=== PATIENT | female | born 1930 | race Caucasian/White ===

== ENCOUNTER 2017-03-07 13:57 | Inpatient (IN) | payer OTHER ==
[2017-03-07] MEDS ORDERED: METOCLOPRAMIDE HCL INJECTION 10 MG/2 ML VIAL IVPUSH ONE (14:49)
[2017-03-07] MEDS ORDERED: FAMOTIDINE IV 20 MG/12 ML VIAL IVPUSH ONE (14:49)
[2017-03-07] MEDS ORDERED: SODIUM CHLORIDE 1,000 ML IV SCH (15:00)
--- NOTE | 2017-03-07 15:22 | PDOC ---
History of Present Illness - History of Present Illness Initial Comments: 03/07/17 15:49 The patient is a 86 year old female with a significant PMH of hypertension and dementia who presents to the emergency department after a fall on the ground today. The patient reports she was trying to get out of bed when she fell and hit her head. The patient notes she has experienced nausea and multiple episodes of diarrhea. History is limited secondary to dementia. The patient denies LOC, chest pain, shortness of breath, headache and dizziness. Denies fever, chills, nausea, vomit, diarrhea and constipation. Denies dysuria, frequency, urgency and hematuria. Allergies: NKA Past surgical history: None reported Social history: Lives at home. No reported alcohol, cigarette or drug use. PCP: Dr. Nadeen Colunga <Haley Bloom - Last Filed: 03/07/17 15:52> - General History Source: Patient, Family <Andrew Farnsworth - Last Filed: 03/07/17 19:27> - General Chief Complaint: Injury Stated Complaint: FALL Time Seen by Provider: 03/07/17 14:48 Past History <Haley Bloom - Last Filed: 03/07/17 15:52> - Past Medical History CVA: No COPD: No HTN: Yes Hypercholesterolemia: Yes Psychiatric Problems: Yes (bipolar, schizophrenia,) Other medical history: cataracts, glaucoma. - Suicide/Smoking/Psychosocial Hx Smoking History: Never smoked Have you smoked in the past 12 months: No Information on smoking cessation initiated: No Hx Alcohol Use: No Drug/Substance Use Hx: No Substance Use Type: None <Andrew Farnsworth - Last Filed: 03/07/17 19:27> - Past Medical History Allergies/Adverse Reactions: Allergies Allergy/AdvReac Type Severity Reaction Status Date / Time No Known Allergies Allergy Verified 03/07/17 14:22 Home Medications: Ambulatory Orders Aripiprazole 10 mg PO DAILY 03/07/17 Divalproex [Depakote -] 250 mg PO BID 03/07/17 Hydrocortisone 0.5% Cream [Hytone 0.5% Cream -] 1 applic TP BID 03/07/17 Latanoprost 0.005% Eye Drops [Xalatan 0.005% Eye Drops -] 1 drop HS 03/07/17 Lisinopril [Prinivil -] 40 mg PO DAILY 03/07/17 Sertraline HCl 50 mg PO DAILY 03/07/17 Review of Systems - Review of Systems Able to Perform ROS?: Yes Comments:: 03/07/17 15:51 GENERAL/CONSTITUTIONAL: No fever or chills. No weakness. HEAD, EYES, EARS, NOSE AND THROAT: No change in vision. No ear pain or discharge. No sore throat. CARDIOVASCULAR: No chest pain or shortness of breath. RESPIRATORY: No cough, wheezing, or hemoptysis. GASTROINTESTINAL: (+) Nausea. (+) Diarrhea. No vomiting or constipation. GENITOURINARY: No dysuria, frequency, or change in urination. MUSCULOSKELETAL: No joint or muscle swelling or pain. No neck or back pain. SKIN: No rash NEUROLOGIC: No headache, vertigo, loss of consciousness, or change in strength/ sensation. ENDOCRINE: No increased thirst. No abnormal weight change. HEMATOLOGIC/LYMPHATIC: No anemia, easy bleeding, or history of blood clots. ALLERGIC/IMMUNOLOGIC: No hives or skin allergy. <Haley Bloom - Last Filed: 03/07/17 15:52> *Physical Exam - Vital Signs Last Vital Signs Temp Pulse Resp BP Pulse Ox 99.4 F 104 H 18 167/87 100 03/07/17 14:17 03/07/17 14:17 03/07/17 14:17 03/07/17 14:17 03/07/17 14:17 - Physical Exam Comments: 03/07/17 15:51 GENERAL: (+) Weak-appearing. Awake, alert, and oriented x1. In no acute distress. HEAD: No signs of trauma EYES: PERRLA, EOMI, sclera anicteric, conjunctiva clear ENT: (+) Dry mucous membranes. Auricles normal inspection, hearing grossly normal, nares patent, oropharynx clear without exudates. NECK: (+) No C-spine tenderness. Normal ROM, supple, JVD, or masses LUNGS: Breath sounds equal, clear to auscultation bilaterally. No wheezes, and no crackles HEART: Regular rate and rhythm, normal S1 and S2, no murmurs, rubs or gallops ABDOMEN: Soft, nontender, normoactive bowel sounds. No guarding, no rebound. No masses PELVIS: Full range of motion. Stable, non-tender. EXTREMITIES: Normal range of motion, no edema. No clubbing or cyanosis. No cords, erythema, or tenderness NEUROLOGICAL: Cranial nerves II through XII grossly intact. Normal speech. SKIN: Warm, Dry, normal turgor, no rashes or lesions noted. <Haley Bloom - Last Filed: 03/07/17 15:52> - Vital Signs Last Vital Signs Temp Pulse Resp BP Pulse Ox 99.4 F 104 H 18 167/87 100 03/07/17 14:17 03/07/17 14:17 03/07/17 14:17 03/07/17 14:17 03/07/17 14:17 <Andrew Farnsworth - Last Filed: 03/07/17 19:27> ED Treatment Course - LABORATORY CBC & Chemistry Diagram: 03/07/17 14:52 03/07/17 17:35 - RADIOLOGY Radiology Studies Ordered: Category Date Time Status HEAD CT WITHOUT CONTRAST [CT] Stat CT Scan 03/07/17 15:02 Ordered CHEST X-RAY PORTABLE* [RAD] Stat Radiology 03/07/17 14:49 Ordered <Andrew Farnsworth - Last Filed: 03/07/17 19:27> Medical Decision Making - Medical Decision Making 03/07/17 15:18 A portion of this note was documented by scribe services under my direction. I have reviewed the details of the note, within reason, and agree with the documentation with the following case summary and management plan written by me. Patient treated in the ED. Nursing notes are reviewed and incorporated into the medical decision-making. Vital signs reviewed. Peripheral IV access obtained by the nurse, laboratory studies are drawn and sent, reviewed and interpreted by myself. Vital Signs Temp Pulse Resp BP Pulse Ox 99.4 F 104 H 18 167/87 100 03/07/17 14:17 03/07/17 14:17 03/07/17 14:17 03/07/17 14:17 03/07/17 14:17 85-year-old female patient with history of hypertension and dementia presents to the emergency department for fall on ground. The patient reports that she lives at home and was attempting to get out of bed when she fell and hit her head. Denies loss of consciousness. Patient reports that today she's been feeling generally unwell. Has been feeling some nausea and multiple episodes of diarrhea. Denies fevers or chills or chest pain or shortness of breath. Denies dysuria. Patient is AAO 1 and with dementia. We'll need to touch base with the patient' s power of tax attorney regarding further medical problems and circumstance. Patient appears have dry mucous membranes and likely with some for GI illness. However, patient has no abdominal tenderness at this time. We'll obtain labs, head CT, EKG. Reassess. 03/07/17 16:10 We had contacted Denisse Olivia Power of Operations Trainer who is aware patient is here. According to [facility], it is an independent living center (not [facility]). Pt has bipolar disorder, HLD, schizophrenia, HTN, glaucoma 03/07/17 19:21 CBC, BMP 03/07/17 14:52 03/07/17 17:35 CMP Sodium 140 mmol/L (136-145) 03/07/17 17:35 Potassium 3.8 mmol/L (3.5-5.1) 03/07/17 17:35 Chloride 103 mmol/L (98-107) 03/07/17 17:35 Carbon Dioxide 27 mmol/L (21-32) 03/07/17 17:35 Anion Gap 10 (8-16) 03/07/17 17:35 BUN 15 mg/dL (7-18) 03/07/17 17:35 Creatinine 0.9 mg/dL (0.55-1.02) 03/07/17 17:35 Creat Clearance w eGFR 59.51 (>60) 03/07/17 17:35 Random Glucose 110 mg/dL (74-106) H 03/07/17 17:35 Lactic Acid 1.3 mmol/L (0.0-2.0) 03/07/17 17:25 Calcium 8.3 mg/dL (8.5-10.1) L 03/07/17 17:35 Phosphorus 3.2 mg/dL (2.5-4.9) 03/07/17 17:35 Magnesium 1.7 mg/dL (1.8-2.4) L 03/07/17 17:35 Total Bilirubin 0.8 mg/dL (0.2-1.0) 03/07/17 17:35 AST 32 U/L (15-37) 03/07/17 17:35 ALT 21 U/L (12-78) 03/07/17 17:35 Alkaline Phosphatase 88 U/L (45-117) 03/07/17 17:35 Creatine Kinase 532 IU/L (26-192) H 03/07/17 17:35 Creatine Kinase Index 0.4 % (0.0-5.0) 03/07/17 17:35 CK-MB (CK-2) 2.598 ng/mL (0.5-3.6) 03/07/17 17:35 Troponin I 0.02 ng/ml (0.00-0.05) 03/07/17 17:35 Total Protein 7.4 g/dl (6.4-8.2) 03/07/17 17:35 Albumin 3.2 g/dl (3.4-5.0) L 03/07/17 17:35 Lipase 57 U/L (73-393) L 03/07/17 17:35 Urine Test Results Urine Color Yellow 03/07/17 18:06 Urine Appearance Clear 03/07/17 18:06 Urine pH 6.0 (5.0-8.0) 03/07/17 18:06 Ur Specific [place] 1.019 (1.001-1.035) 03/07/17 18:06 Urine Protein 2+ (NEGATIVE) H 03/07/17 18:06 Urine Glucose (UA) Negative (NEGATIVE) 03/07/17 18:06 Urine Ketones 1+ (NEGATIVE) H 03/07/17 18:06 Urine Blood 1+ (NEGATIVE) H 03/07/17 18:06 Urine Nitrite Negative (NEGATIVE) 03/07/17 18:06 Urine Bilirubin Negative (NEGATIVE) 03/07/17 18:06 Ur Leukocyte Esterase Negative (NEGATIVE) 03/07/17 18:06 Patient noted with a fever. Case discussed with the patient's sister Maegan Ramirez [phone], , who is aware. The patient is too weak to get up and walk and likely dehydrated with GI symptoms, gastroenteritis. 03/07/17 19:[address] Galeas who accepts the patient to med/surg observation Case discussed in detail with admitting physician including history, physical exam and ancillary studies. Admitting physician has assumed care for the patient, will follow all pending diagnostics and will complete the evaluation and treatment. <Andrew Farnsworth - Last Filed: 03/07/17 19:27> *DC/Admit/Observation/Transfer - Attestations Scribe Attestion: 03/07/17 15:51 Documentation prepared by Haley Bloom, acting as medical housekeeper for Andrew Farnsworth MD. <Haley Bloom - Last Filed: 03/07/17 15:52> - Discharge Dispostion Admit: Yes <Andrew Farnsworth - Last Filed: 03/07/17 19:27> Diagnosis at time of Disposition: Dehydration Fever Qualifiers: Fever type: unspecified Qualified Code(s): R50.9 - Fever, unspecified - Discharge Dispostion Condition at time of disposition: Stable - Referrals Referrals: Nadeen Colunga MD [Primary Care Provider] - - Patient Instructions - Post Discharge Activity
[2017-03-07] MEDS ORDERED: ONDANSETRON 4 MG/2 ML VIAL ONE (17:13)
[2017-03-07] MEDS ORDERED: METOCLOPRAMIDE HCL INJECTION 10 MG/2 ML VIAL ONE (17:13)
[2017-03-07] MEDS ORDERED: FAMOTIDINE 20 MG/50 ML IVPB 20 MG/50 ML MG IVPB ONE (17:14)
[2017-03-07 18:11] LABS: INR 1.09 (0.82-1.09); PROTHROMBIN TIME (PATIENT) 12.3 SEC (9.98-11.88)
[2017-03-07] MEDS ORDERED: ACETAMINOPHEN INJECTION 100 ML IVPB ONE (18:11)
[2017-03-07 18:14] LABS: ACTIVATED PTT 28.4 SECONDS (26.9-34.4)
[2017-03-07 18:36] LABS: ALBUMIN 3.2 g/dl (3.4-5.0); ANION GAP 10 (8-16); BLOOD UREA NITROGEN 15 mg/dL (7-18); CALCIUM 8.3 mg/dL (8.5-10.1); CHLORIDE 103 mmol/L (98-107); CO2 27 mmol/L (21-32); CREATININE 0.9 mg/dL (0.55-1.02); GLUCOSE,RANDOM 110 mg/dL (74-106); LIPASE 57 U/L (73-393); MAGNESIUM 1.7 mg/dL (1.8-2.4); PHOSPHOROUS 3.2 mg/dL (2.5-4.9); POTASSIUM 3.8 mmol/L (3.5-5.1); SGOT/AST 32 U/L (15-37); SGPT/ALT 21 U/L (12-78); SODIUM 140 mmol/L (136-145)
[2017-03-07 18:36] LABS: URINE APPEARANCE CLEAR; URINE BILIRUBIN NEGATIVE (NEGATIVE); URINE BLOOD 1+ (NEGATIVE); URINE COLOR YELLOW; URINE GLUCOSE (UA) NEGATIVE (NEGATIVE); URINE KETONE 1+ (NEGATIVE); URINE LEUK ESTERASE NEGATIVE (NEGATIVE); URINE NITRITE NEGATIVE (NEGATIVE); URINE UROBILINOGEN 4.0 E.U/dl mg/dL (0.2-1.0)
[2017-03-07 18:37] LABS: ALK PHOS 88 U/L (45-117); BILIRUBIN,TOTAL 0.8 mg/dL (0.2-1.0); TOT PROT 7.4 g/dl (6.4-8.2)
[2017-03-07 18:42] LABS: BASO % 0.4 % (0-2.0); HEMATOCRIT 40.8 % (32.4-45.2); HEMOGLOBIN 13.5 GM/dL (10.7-15.3); LYMPH % 26.3 % (8-40); MCH 27.6 pg (25.7-33.7); MEAN CELL VOLUME 83.6 fl (80-96); MEAN PLT VOLUME 8.7 fl (7.5-11.1); NEUT % 63.3 % (42.8-82.8); PLATELET COUNT 217 K/MM3 (134-434); RBC 4.88 M/mm3 (3.60-5.2); RDW 16.6 % (11.6-15.6); WHITE BLOOD COUNT 11.2 K/mm3 (4.0-10.0)
[2017-03-07 18:43] LABS: URINE PROTEIN 2+ (NEGATIVE)
[2017-03-07] MEDS ORDERED: ACETAMINOPHEN 1000 MG/100 ML VIAL (NON FORMULARY) IVPB ONE (18:47)
[2017-03-07 19:43] LABS: URINE MUCUS RARE
[2017-03-07] MEDS ORDERED: ONDANSETRON 4 MG/2 ML VIAL IVPUSH PRN (20:55)
[2017-03-07] MEDS: SODIUM CHLORIDE 1,000 ML IV SCH (21:03)
[2017-03-07] MEDS ORDERED: MAGNESIUM SULF 50% (8.12 MEQ/2 ML-1 GM VIAL) ONE (21:04)
[2017-03-07] MEDS ORDERED: MAGNESIUM 1GM/D5W - 1 GM/100 ML IVPB IVPB ONE (21:25)
[2017-03-07] MEDS: HEPARIN NA (PORCINE) 5,000 UNITS/ML 1ML VIAL SQ SCH (22:07)
--- NOTE | 2017-03-07 22:17 | HP ---
CHIEF COMPLAINT: s/p fall PCP: HISTORY OF PRESENT ILLNESS: 86 y/o F with PMH HTN, baseline dementia, who presents to the ED s/p fall this morning. As per patient, she was lying down in her bed this AM and had difficulty rising. However, once she got up, she immediately fell. Pt is unable to describe which side she fell on, however states that she felt dizzy and lightheaded a few minutes prior to the episode. She endorses palpitations, but denies head trauma, LOC, or any resulting injuries. Fall was unwitnessed. Pt also endorses nausea without emesis, and many loose BM's. Pt is unable to quantify as she uses a diaper. Otherwise denies GAN, fever, chills, abdominal pain, or changes in urinary function. Patient lives in a co-op on her own. At baseline, she ambulates with a walker. ER course was notable for: (1) acetaminophen 1000mg IVPB x1 (2) reglan 10mg IVP (3) zofran 4mg x 1 (4) Head CT: (-) hemorrhage (5) Mini mental score: 4/30 Recent Travel: none PAST MEDICAL HISTORY: HTN, baseline dementia PAST SURGICAL HISTORY: tonsillectomy (during childhood) Social History: Smoking: denies Alcohol: denies Drugs: denies Family History: denies Allergies No Known Allergies Allergy (Verified 03/07/17 14:22) HOME MEDICATIONS: Home Medications Medication Instructions Recorded Aripiprazole 10 mg PO DAILY 03/07/17 Divalproex [Depakote -] 250 mg PO BID 03/07/17 Hydrocortisone 0.5% Cream [Hytone 1 applic TP BID 03/07/17 0.5% Cream -] Latanoprost 0.005% Eye Drops 1 drop HS 03/07/17 [Xalatan 0.005% Eye Drops -] Lisinopril [Prinivil -] 40 mg PO DAILY 03/07/17 Sertraline HCl 50 mg PO DAILY 03/07/17 REVIEW OF SYSTEMS CONSTITUTIONAL: Absent: fever, chills, diaphoresis, generalized weakness, malaise, loss of appetite, weight change HEENT: Absent: rhinorrhea, nasal congestion, throat pain, throat swelling, difficulty swallowing, mouth swelling, ear pain, eye pain, visual changes CARDIOVASCULAR: +palpitations Absent: chest pain, syncope, palpitations, irregular heart rate, lightheadedness , peripheral edema RESPIRATORY: Absent: cough, shortness of breath, dyspnea with exertion, orthopnea, wheezing, stridor, hemoptysis GASTROINTESTINAL: +nausea, diarrhea Absent: abdominal pain, abdominal distension, nausea, vomiting, diarrhea, constipation, melena, hematochezia GENITOURINARY: Absent: dysuria, frequency, urgency, hesitancy, hematuria, flank pain, genital pain MUSCULOSKELETAL: Absent: myalgia, arthralgia, joint swelling, back pain, neck pain SKIN: Absent: rash, itching, pallor HEMATOLOGIC/IMMUNOLOGIC: Absent: easy bleeding, easy bruising, lymphadenopathy, frequent infections ENDOCRINE: Absent: unexplained weight gain, unexplained weight loss, heat intolerance, cold intolerance NEUROLOGIC: Absent: headache, focal weakness or paresthesias, dizziness, unsteady gait, seizure, mental status changes, bladder or bowel incontinence PSYCHIATRIC: Absent: anxiety, depression, suicidal or homicidal ideation, hallucinations. PHYSICAL EXAMINATION Vital Signs - 24 hr 03/07/17 03/07/17 14:17 16:25 Temperature 99.4 F 101.6 F H Pulse Rate 104 H Pulse Rate [ Left Apical] Respiratory 18 Rate Blood Pressure 167/87 Blood Pressure [Left Arm] O2 Sat by Pulse 100 Oximetry (%) GENERAL: Lethargic, AAOx 1 (to self only), lying in bed. In no acute distress HEAD: Normal with no signs of trauma. EYES: Pupils equal, round and reactive to light, extraocular movements intact, sclera anicteric, conjunctiva clear. EARS, NOSE, THROAT: Ears normal, nares patent, oropharynx clear without exudates. Dry mucous membranes NECK: Normal range of motion, supple without lymphadenopathy LUNGS: Breath sounds equal, clear to auscultation bilaterally. No wheezes, and no crackles. No accessory muscle use. Poor inspiratory effort HEART: Regular rate and rhythm, normal S1 and S2 without murmur, rub or gallop. ABDOMEN: Soft, nontender, not distended, normoactive bowel sounds, no guarding LOWER EXTREMITIES: 2+ posterior tibial pulses, warm, well-perfused. No calf tenderness. No peripheral edema. NEUROLOGICAL: Cranial nerves II-XII appear to be grossly intact, however pt with severe dementia unable to respond to some commands. MMSE 06/10 Laboratory Results 01/03/07/17 03/07/17 14:52 17:25 17:35 WBC 11.2 H Hgb 13.5 Hct 40.8 Plt Count 217 Sodium 140 Potassium 3.8 Chloride 103 Carbon Dioxide 27 BUN 15 Creatinine 0.9 Random Glucose 110 H Lactic Acid 1.3 Calcium 8.3 L Phosphorus 3.2 Magnesium 1.7 L Creatine Kinase 532 H Troponin I 0.02 Lipase 57 L Urine WBC (Auto) 03/07/17 03/07/17 18:06 21:00 Creatine Kinase TSH 3.17 Urine Color Yellow Urine Appearance Clear Urine pH 6.0 Urine Protein 2+ H Urine Ketones 1+ H Urine Blood 1+ H Urine Nitrite Negative Urine Bilirubin Negative Urine Urobilinogen 4.0 e.u/dl H Urine WBC (Auto) 1 Microbiology -Blood cx: sent, pending -Urine cx: sent, pending Radio -CXR: minimal L basilar interstitial thickening, chronic. Small to mod L retrocardiac hernia -Head CT: no evidence hemorrhage, or mass effects. moderate microvascular ischemic changes ASSESSMENT/PLAN: 86 y/o F with PMH HTN, baseline dementia, who presents to the ED s/p fall this morning. As per patient, she was lying down in her bed this AM and had difficulty rising. However, once she got up, she immediately fell. Pt being admitted to med-surg for sepsis 2/2 possible acute gastroenteritis. #Sepsis 2/2 possible acute gastroenteritis -on arrival, pt febrile 101.6F, with leukocytosis 11.2, borderline tachycardic 98HR, GI c/o diarrhea, nausea -may have caused dehydration, leading to fall -supportive care for gastroenteritis -continue IVF -replace electrolytes; Mg 1g IVPB to replete if needed -F/u AM CBC -F/u blood cx, urine cx #HTN- currently uncontrolled -JNC8 goal <150/90 in those 80+ -may be 2/2 discomfort and pain s/p fall -continue home med lisinopril 40mg qd -continue to monitor #PPX DVT: Hep 5000 SQ BID #F/E/N IV NS 75 cc/hr Monitor electrolytes sodium controlled diet #Dispo med-surg Visit type - Emergency Visit Emergency Visit: Yes ED Registration Date: 03/07/17 Care time: The patient presented to the Emergency Department on the above date and was hospitalized for further evaluation of their emergent condition. - New Patient This patient is new to me today: Yes Date on this admission: 03/08/17 - Critical Care Critical Care patient: No
[2017-03-07] MEDS ORDERED: HEPARIN NA (PORCINE) 5,000 UNITS/ML 1ML VIAL ONE (22:20)
[2017-03-08 04:27] LABS: HEMATOCRIT 37.1 % (32.4-45.2); HEMOGLOBIN 12.2 GM/dL (10.7-15.3); MCH 27.5 pg (25.7-33.7); MCHC 32.8 g/dl (32.0-36.0); MEAN PLT VOLUME 8.5 fl (7.5-11.1); PLATELET COUNT 192 K/MM3 (134-434); RBC 4.41 M/mm3 (3.60-5.2); RDW 16.6 % (11.6-15.6); WHITE BLOOD COUNT 8.9 K/mm3 (4.0-10.0)
[2017-03-08 05:38] LABS: ALBUMIN 2.7 g/dl (3.4-5.0); ALK PHOS 75 U/L (45-117); ANION GAP 7 (8-16); BILIRUBIN,TOTAL 0.5 mg/dL (0.2-1.0); BLOOD UREA NITROGEN 19 mg/dL (7-18); CALCIUM 7.5 mg/dL (8.5-10.1); CHLORIDE 107 mmol/L (98-107); CO2 26 mmol/L (21-32); CREATININE 0.9 mg/dL (0.55-1.02); GLUCOSE,RANDOM 111 mg/dL (74-106); SGPT/ALT 22 U/L (12-78); SODIUM 140 mmol/L (136-145); TOT PROT 6.3 g/dl (6.4-8.2)
[2017-03-08 05:48] LABS: MAGNESIUM 1.7 mg/dL (1.8-2.4); POTASSIUM 3.8 mmol/L (3.5-5.1); SGOT/AST 33 U/L (15-37)
--- NOTE | 2017-03-08 07:30 | PN ---
Teaching Attending Note Name of Resident: Sandhya Ni ATTENDING PHYSICIAN STATEMENT I saw and evaluated the patient. I reviewed the resident's note and discussed the case with the resident. I agree with the resident's findings and plan as documented. SUBJECTIVE: 86 y/o F s/p Fall and recurrent fall in the ED , patient is a poor historian secondary to dementia. PMH HTN. OBJECTIVE: Patient A&Ox1, in NAD HEENT: PERRLA, EOMI, MMM CVS: RRR LUNGS: CTA Abd: soft, NT, BS+ Ext: limited ROM secondary to pain , no edema. CBC, BMP 03/08/17 04:16 03/08/17 04:16 ASSESSMENT AND PLAN: Sepsis criteria met possibly- d/t acute gastroenteritis- supportive care hypomagnesemia supplement 1G IVPB HTN continue home medication See H&P Problem List - Problems (1) Sepsis Code(s): A41.9 - SEPSIS, UNSPECIFIED ORGANISM (2) Acute gastroenteritis Code(s): K52.9 - NONINFECTIVE GASTROENTERITIS AND COLITIS, UNSPECIFIED (3) Hypomagnesemia Code(s): E83.42 - HYPOMAGNESEMIA
[2017-03-08] MEDS ORDERED: MAGNESIUM SULF 50% (8.12 MEQ/2 ML-1 GM VIAL) IVPB ONE (07:41)
[2017-03-08] MEDS ORDERED: ACETAMINOPHEN 500 MG TABLET (FP) PO ONE (08:39)
[2017-03-08] MEDS ORDERED: ACETAMINOPHEN 325 MG TABLET (FP) PO PRN (08:41)
[2017-03-08] MEDS ORDERED: ACETAMINOPHEN 500 MG TABLET (FP) ONE (08:49)
[2017-03-08] MEDS ORDERED: MAGNESIUM 1GM/D5W - 1 GM/100 ML IVPB IVPB ONE (09:30)
[2017-03-08] MEDS: HEPARIN NA (PORCINE) 5,000 UNITS/ML 1ML VIAL SQ SCH ×2 (10:17→22:42)
[2017-03-08] MEDS: DIVALPROEX SODIUM 250 MG TABLET E.C. (FP) PO SCH ×2 (10:17→22:42)
[2017-03-08] MEDS: SERTRALINE HCL 50 MG TABLET (FP) PO SCH (10:17)
[2017-03-08] MEDS: ARIPiprazole 10 MG TABLET PO SCH (10:18)
[2017-03-08] MEDS: LISINOPRIL 20 MG TABLET (FP) PO SCH (10:18)
[2017-03-08] MEDS: HYDROCORTISONE 0.5% TOPICAL CREAM 30 GM TUBE TP SCH ×2 (10:18→22:43)
[2017-03-08 17:19] VITALS: BMI 25.4
--- NOTE | 2017-03-08 18:30 | PN ---
Teaching Attending Note Name of Resident: Braxton Burgos ATTENDING PHYSICIAN STATEMENT I saw and evaluated the patient. I reviewed the resident's note and discussed the case with the resident. I agree with the resident's findings and plan as documented. SUBJECTIVE: No fever or chills, no abd pain , NO CP or SOB. reports feeling dizzy before she syncope . diarrhea recently OBJECTIVE: NAD , dry MM , no axillary sweating Cv : RRR Lungs: CTAB Ext: no edema Abd: soft, NT, ND, nl BS ASSESSMENT AND PLAN: 86 y/o lady withh/o HTn and dementia who presented with a fall /syncope 1-Syncope: could be due to orthostatic hypotension in setting of volume depletion. arrhythmias in DDx . - PT - Echo , no significant valvular abn - carotid doppler with no high grade stenosis - check ortho VS - IVF - tele 2-Sepsis : possible viral GE . no diarrhea currently. no evidence of UTI or PNA . monitor off ABx follow blood cx rapid flu Neg, check RVP. 3- volume depetion : IVF 4-hypomagnesemia : replete dispo : Monitor on tele
--- NOTE | 2017-03-08 18:32 | PN ---
Physical Exam: SUBJECTIVE: Patient seen and examined at bedside. denies any fever, chills , N/V /C, denies any abdmoinal pain, denies any headache, light headedness, or dizziness. reports lightheadedness before she fell. OBJECTIVE: Vital Signs Period Temp Pulse Resp BP Sys/[place] Pulse Ox Last 24 Hr 97.2 F-99.9 F 76-98 16-20 137-175/59-86 95-97 GENERAL: Lethargic, AAOx 1 (to self only), lying in bed. In no acute distress HEAD: Normal with no signs of trauma. EYES: Pupils equal, round and reactive to light, extraocular movements intact, sclera anicteric, conjunctiva clear. EARS, NOSE, THROAT: Ears normal, nares patent, oropharynx clear without exudates. Dry mucous membranes NECK: Normal range of motion, supple without lymphadenopathy LUNGS: Breath sounds equal, clear to auscultation bilaterally. No wheezes, and no crackles. No accessory muscle use. Poor inspiratory effort HEART: Regular rate and rhythm, normal S1 and S2 without murmur, rub or gallop. ABDOMEN: Soft, nontender, not distended, normoactive bowel sounds, no guarding LOWER EXTREMITIES: 2+ posterior tibial pulses, warm, well-perfused. No calf tenderness. No peripheral edema. NEUROLOGICAL: Cranial nerves II-XII appear to be grossly intact, however pt with severe dementia unable to respond to some commands. MMSE 06/10 Laboratory Results - last 24 hr 03/07/17 03/07/17 03/07/17 14:52 17:25 17:35 WBC 11.2 H RBC 4.88 Hgb 13.5 Hct 40.8 MCV 83.6 MCH 27.6 MCHC 33.0 RDW 16.6 H Plt Count 217 MPV 8.7 Neutrophils % 63.3 Lymphocytes % 26.3 Monocytes % 10.0 Eosinophils % 0.0 Basophils % 0.4 PT with INR 12.30 H INR 1.09 PTT (Actin FS) 28.4 Sodium Potassium Chloride Carbon Dioxide Anion Gap BUN Creatinine Creat Clearance w eGFR Random Glucose Lactic Acid 1.3 Calcium Phosphorus Magnesium Total Bilirubin AST ALT Alkaline Phosphatase Creatine Kinase Creatine Kinase Index CK-MB (CK-2) Troponin I Total Protein Albumin Lipase TSH Urine Color Urine Appearance Urine pH Ur Specific [place] Urine Protein Urine Glucose (UA) Urine Ketones Urine Blood Urine Nitrite Urine Bilirubin Urine Urobilinogen Ur Leukocyte Esterase Urine WBC (Auto) Urine RBC (Auto) Urine Mucus 03/07/17 03/07/17 03/07/17 17:35 18:06 21:00 WBC RBC Hgb Hct MCV MCH MCHC RDW Plt Count MPV Neutrophils % Lymphocytes % Monocytes % Eosinophils % Basophils % PT with INR INR PTT (Actin FS) Sodium 140 Potassium 3.8 Chloride 103 Carbon Dioxide 27 Anion Gap 10 BUN 15 Creatinine 0.9 Creat Clearance w eGFR 59.51 Random Glucose 110 H Lactic Acid Calcium 8.3 L Phosphorus 3.2 Magnesium 1.7 L Total Bilirubin 0.8 AST 32 ALT 21 Alkaline Phosphatase 88 Creatine Kinase 532 H Creatine Kinase Index 0.4 CK-MB (CK-2) 2.598 Troponin I 0.02 Total Protein 7.4 Albumin 3.2 L Lipase 57 L TSH 3.17 Urine Color Yellow Urine Appearance Clear Urine pH 6.0 Ur Specific [place] 1.019 Urine Protein 2+ H Urine Glucose (UA) Negative Urine Ketones 1+ H Urine Blood 1+ H Urine Nitrite Negative Urine Bilirubin Negative Urine Urobilinogen 4.0 e.u/dl H Ur Leukocyte Esterase Negative Urine WBC (Auto) 1 Urine RBC (Auto) 2 Urine Mucus Rare 03/08/17 03/08/17 03/08/17 04:16 04:16 04:16 WBC 8.9 RBC 4.41 Hgb 12.2 Hct 37.1 MCV 84.0 MCH 27.5 MCHC 32.8 RDW 16.6 H Plt Count 192 MPV 8.5 Neutrophils % Lymphocytes % Monocytes % Eosinophils % Basophils % PT with INR INR PTT (Actin FS) Sodium 140 Potassium 3.8 Chloride 107 Carbon Dioxide 26 Anion Gap 7 L BUN 19 H Creatinine 0.9 Creat Clearance w eGFR 59.51 Random Glucose 111 H Lactic Acid 0.8 Calcium 7.5 L Phosphorus Magnesium 1.7 L Total Bilirubin 0.5 D AST 33 ALT 22 Alkaline Phosphatase 75 Creatine Kinase Creatine Kinase Index CK-MB (CK-2) Troponin I Total Protein 6.3 L Albumin 2.7 L Lipase TSH Urine Color Urine Appearance Urine pH Ur Specific [place] Urine Protein Urine Glucose (UA) Urine Ketones Urine Blood Urine Nitrite Urine Bilirubin Urine Urobilinogen Ur Leukocyte Esterase Urine WBC (Auto) Urine RBC (Auto) Urine Mucus Active Medications Generic Name Dose Route Start Last Admin Trade Name Freq PRN Reason Stop Dose Admin Acetaminophen 650 mg 03/08/17 08:41 Tylenol - PO Q6H PRN PAIN Aripiprazole 10 mg 03/08/17 10:00 03/08/17 10:18 Abilify PO 10 mg DAILY LINO Administration Divalproex Sodium 250 mg 03/08/17 10:00 03/08/17 10:17 Depakote - PO 250 mg BID LINO Administration Heparin Sodium (Porcine) 5,000 unit 03/07/17 22:00 03/08/17 10:17 Heparin - SQ 5,000 unit BID LINO Administration Hydrocortisone 1 applic 03/08/17 10:00 03/08/17 10:18 Hytone 0.5% Cream - TP 1 applic BID LINO Administration Sodium Chloride 1,000 mls @ 83 mls/hr 03/07/17 21:00 03/07/17 21:03 Normal Saline - IV 83 mls/hr ASDIR LINO Administration Latanoprost 1 drop 03/08/17 22:00 Xalatan 0.005% Eye Drops - OD HS LINO Lisinopril 20 mg 03/08/17 10:00 03/08/17 10:18 Prinivil PO 20 mg DAILY LINO Administration Ondansetron HCl 4 mg 03/07/17 20:55 Zofran Injection IVPUSH Q6H PRN NAUSEA Sertraline HCl 50 mg 03/08/17 10:00 03/08/17 10:17 Zoloft - PO 50 mg DAILY LINO Administration CBC, BMP 03/08/17 04:16 03/08/17 04:16 Microbiology 03/07/17 18:26 Blood - Peripheral Venous Blood Culture - Preliminary NO GROWTH OBTAINED AFTER 24 HOURS, INCUBATION TO CONTINUE FOR 4 DAYS. 03/07/17 18:26 Blood - Peripheral Venous Blood Culture - Preliminary NO GROWTH OBTAINED AFTER 24 HOURS, INCUBATION TO CONTINUE FOR 4 DAYS. Urine Cx : pending 03/08/17 09:00 Nasopharyngeal Swab Respiratory Syncytial Virus Ag , negative , PCR RPV pending 03/08/17 09:00 Nasopharyngeal Swab Influenza Types A,B Antigen (KRISHNA) negative 03/08/17 09:00 Nasopharyngeal Swab - Radio * CXR: minimal L basilar interstitial thickening, chronic. Small to mod L retrocardiac hernia * Head CT: no evidence hemorrhage, or mass effects. moderate microvascular ischemic changes ASSESSMENT/PLAN: 86 y/o F with PMH HTN, baseline dementia, who presents to the ED s/p fall this morning/syncope . As per patient, . Pt being admitted to med-surg for sepsis 2/ 2 possible acute gastroenteritis. #Sepsis 2/2 possible acute gastroenteritis, improving * on arrival, pt febrile 101.6F, with leukocytosis 11.2, borderline tachycardic 98HR, GI c/o diarrhea, nausea * WBC trend to 8.8 * may have caused dehydration, leading to fall * supportive care for gastroenteritis * continue IVF NS @ 83 cc /hr * replace electrolytes; Mg 1g IVPB to replete if needed * F/u AM CBC * blood cx negative , urine cx pending * # Syncope likely 2/2 dehydration can not R/O arrhythmia * IV fluids NS # 83 CC/Hr * Echocardiogtram with no valve abnormality , EF 80.4% * Carotid doppler with ni increased velocity * Tylenol 650 mg PO PRN for pain # SABINO secondary to dehydration * BUN/Cr > 20:1 * Monitor after IV fluids #HTN- currently uncontrolled likely 2/2 pain S/P fall * goal <150/90 in those 80+ * continue home med lisinopril 20mg qd * continue to monitor # H/O Bipolar ? Psychosis ? * on home meds Zoloft 50 po daily, Abilify 10 mg PO daily,valbroic acid 250 mg PO BID #PPX * DVT: Hep 5000 SQ TID * SCDS Both legs #F/E/N * IV NS 83 cc/hr * Monitor electrolytes * sodium controlled diet #Dispo * Admit to tele Visit type - Emergency Visit Emergency Visit: Yes ED Registration Date: 03/07/17 Care time: The patient presented to the Emergency Department on the above date and was hospitalized for further evaluation of their emergent condition. - New Patient This patient is new to me today: Yes Date on this admission: 03/09/17 - Critical Care Critical Care patient: No - Discharge Referral Referred to [facility] Med P.C[facility] No
[2017-03-08] MEDS ORDERED: PT OWN MED DRAWER 7, Y5N ONE (20:38)
[2017-03-08] MEDS: LATANOPROST 0.005% OPHTH SOLN 2.5ML BOTTLE OD SCH (23:17)
[2017-03-09 07:35] LABS: BASO % 0.2 % (0-2.0); EOS % 1.7 % (0-4.5); HEMATOCRIT 33.5 % (32.4-45.2); MCH 27.7 pg (25.7-33.7); MCHC 32.9 g/dl (32.0-36.0); MEAN CELL VOLUME 84.1 fl (80-96); MEAN PLT VOLUME 8.1 fl (7.5-11.1); MONO % 9.2 % (3.8-10.2); NEUT % 41.9 % (42.8-82.8); PLATELET COUNT 191 K/MM3 (134-434); RBC 3.98 M/mm3 (3.60-5.2); RDW 16.9 % (11.6-15.6); WHITE BLOOD COUNT 7.5 K/mm3 (4.0-10.0)
[2017-03-09 07:54] LABS: ALBUMIN 2.5 g/dl (3.4-5.0); ANION GAP 7 (8-16); BLOOD UREA NITROGEN 24 mg/dL (7-18); CALCIUM 7.6 mg/dL (8.5-10.1); CHLORIDE 109 mmol/L (98-107); CO2 26 mmol/L (21-32); CREATININE 0.9 mg/dL (0.55-1.02); GLUCOSE,RANDOM 112 mg/dL (74-106); POTASSIUM 3.7 mmol/L (3.5-5.1); SGOT/AST 30 U/L (15-37); SGPT/ALT 22 U/L (12-78); SODIUM 142 mmol/L (136-145)
[2017-03-09 07:55] LABS: ALK PHOS 82 U/L (45-117); BILIRUBIN,TOTAL 0.4 mg/dL (0.2-1.0)
[2017-03-09 08:58] LABS: MAGNESIUM 2.2 mg/dL (1.8-2.4)
[2017-03-09] MEDS ORDERED: PT OWN MED DRAWER 7, Y5N ONE (09:17)
[2017-03-09] MEDS: LISINOPRIL 20 MG TABLET (FP) PO SCH (09:29)
[2017-03-09] MEDS: SERTRALINE HCL 50 MG TABLET (FP) PO SCH (09:29)
[2017-03-09] MEDS: SODIUM CHLORIDE 1,000 ML IV SCH ×2 (09:30→13:55)
[2017-03-09] MEDS: ARIPiprazole 10 MG TABLET PO SCH (09:30)
[2017-03-09] MEDS: DIVALPROEX SODIUM 250 MG TABLET E.C. (FP) PO SCH ×2 (09:30→21:03)
[2017-03-09] MEDS: HYDROCORTISONE 0.5% TOPICAL CREAM 30 GM TUBE TP SCH ×2 (09:32→21:04)
--- NOTE | 2017-03-09 12:19 | EKG ---
Test Reason : Blood Pressure : / mmHG Vent. Rate : 083 BPM Atrial Rate : 083 BPM P-R Int : 148 ms QRS Dur : 080 ms QT Int : 394 ms P-R-T Axes : 066 -05 101 degrees QTc Int : 462 ms NORMAL SINUS RHYTHM NONSPECIFIC ST AND T WAVE ABNORMALITY ABNORMAL ECG NO PREVIOUS ECGS AVAILABLE Confirmed by MD TAHIR, MARLO ([id number]) on 03/09/2017 12:19:00 PM Referred By: Confirmed By:MARLO HARO MD
[2017-03-09] MEDS: HEPARIN NA (PORCINE) 5,000 UNITS/ML 1ML VIAL SQ SCH ×2 (13:52→21:03)
--- NOTE | 2017-03-09 13:55 | PN ---
Teaching Attending Note Name of Resident: Abhijit Washington ATTENDING PHYSICIAN STATEMENT I saw and evaluated the patient. I reviewed the resident's note and discussed the case with the resident. I agree with the resident's findings and plan as documented. SUBJECTIVE: No fever or chills. Has no diarrhea today or overnight , no abd pain , no PC or OSB OBJECTIVE: NAD , dry MM. awake and cooperative , felt dizzy when got p Cv : RRR Lungs: CTAB Ext: no edema Abd: soft, NT, ND, nl BS ASSESSMENT AND PLAN: 86 y/o lady with h/o HTN and dementia who presented with a fall /syncope 1-Syncope: could be due to orthostatic hypotension in setting of volume depletion, george with light headedness when she got up . - cont hydration , increase IVF - Echo , no significant valvular abn - carotid doppler with no high grade stenosis - ortho VS still pending 2-Sepsis : likely viral GE. no diarrhea in house, leukocytosis resolved and no fever monitor off ABx follow blood cx rapid flu Neg, RVP pending 3- volume depletion : IVF 4-hypomagnesemia : resolved dispo : failed PT. need rehab .
--- NOTE | 2017-03-09 15:03 | PN ---
Physical Exam: SUBJECTIVE: Patient stated that she's feeling much better, although dizzy at times when she gets out of the bed. denies chest pain, palpitation, focal weakness. OBJECTIVE: Vital Signs Period Temp Pulse Resp BP Sys/[place] Pulse Ox Last 24 Hr 97.2 F-99.3 F 84-94 16-20 112-148/50-67 95 GENERAL: AAO x 3. lying in bed. In no acute distress LUNGS: b/l rhonchi in lower bases poor respiratory effort HEART: RRR, normal S1 and S2 without murmur, rub or gallop. ABDOMEN: Soft, nontender, not distended, normoactive bowel sounds, no guarding LOWER EXTREMITIES: 2+ posterior tibial pulses, warm, well-perfused. No calf tenderness. No peripheral edema. NEUROLOGICAL: Cranial nerves II-XII appear to be grossly intact, however pt with severe dementia unable to respond to some commands. MMSE 06/10 Laboratory Results - last 24 hr 03/09/17 03/09/17 03/09/17 06:00 06:00 06:00 WBC 7.5 RBC 3.98 Hgb 11.0 Hct 33.5 MCV 84.1 MCH 27.7 MCHC 32.9 RDW 16.9 H Plt Count 191 MPV 8.1 Neutrophils % 41.9 L D Lymphocytes % 47.0 H D Monocytes % 9.2 Eosinophils % 1.7 D Basophils % 0.2 Sodium 142 Cancelled Potassium 3.7 Cancelled Chloride 109 H Cancelled Carbon Dioxide 26 Cancelled Anion Gap 7 L Cancelled BUN 24 H Cancelled Creatinine 0.9 Cancelled Creat Clearance w eGFR 59.51 Random Glucose 112 H Cancelled Calcium 7.6 L Cancelled Magnesium 2.2 Cancelled Total Bilirubin 0.4 AST 30 ALT 22 Alkaline Phosphatase 82 Total Protein 6.0 L Albumin 2.5 L Active Medications Generic Name Dose Route Start Last Admin Trade Name Freq PRN Reason Stop Dose Admin Acetaminophen 650 mg 03/08/17 08:41 Tylenol - PO Q6H PRN PAIN Aripiprazole 10 mg 03/08/17 10:00 03/09/17 09:30 Abilify PO 10 mg DAILY LINO Administration Divalproex Sodium 250 mg 03/08/17 10:00 03/09/17 09:30 Depakote - PO 250 mg BID LINO Administration Heparin Sodium (Porcine) 5,000 unit 03/09/17 14:00 03/09/17 13:52 Heparin - SQ 5,000 unit TID LINO Administration Hydrocortisone 1 applic 03/08/17 10:00 03/09/17 09:32 Hytone 0.5% Cream - TP Not Given BID LINO Sodium Chloride 1,000 mls @ 100 mls/hr 03/09/17 12:15 03/09/17 13:55 Normal Saline - IV 100 mls/hr ASDIR LINO Administration Latanoprost 1 drop 03/08/17 22:00 03/08/17 23:17 Xalatan 0.005% Eye Drops - OD 1 units HS LINO Administration Lisinopril 20 mg 03/08/17 10:00 03/09/17 09:29 Prinivil PO 20 mg DAILY LINO Administration Ondansetron HCl 4 mg 03/07/17 20:55 Zofran Injection IVPUSH Q6H PRN NAUSEA Sertraline HCl 50 mg 03/08/17 10:00 03/09/17 09:29 Zoloft - PO 50 mg DAILY LINO Administration ASSESSMENT/PLAN: 86 y/o F with PMH HTN, baseline dementia, who presents to the ED s/p fall this morning/syncope . As per patient, . Pt being admitted to med-surg for sepsis 2/ 2 possible acute gastroenteritis. #Sepsis 2/2 possible acute gastroenteritis * Resolved # Syncope likely 2/2 dehydration can not R/O arrhythmia * Cardiac workup negative * Negative orthostatic signs * Cont. hydration # SABINO secondary to dehydration * Resolved #HTN * Controlled with home meds # H/O Bipolar ? Psychosis ? * on home meds Zoloft 50 po daily, Abilify 10 mg PO daily,valbroic acid 250 mg PO BID #PPX * DVT: Hep 5000 SQ TID * SCDS Both legs #F/E/N * IV NS 100 cc/hr * Monitor electrolytes * sodium controlled diet #Dispo * Failed PT * D/C to rehab, family preservation caseworker aware Visit type - Emergency Visit Emergency Visit: No - New Patient This patient is new to me today: No - Critical Care Critical Care patient: No
[2017-03-09] MEDS: LATANOPROST 0.005% OPHTH SOLN 2.5ML BOTTLE OD SCH (21:05)
[2017-03-10] MEDS: HEPARIN NA (PORCINE) 5,000 UNITS/ML 1ML VIAL SQ SCH ×3 (06:43→21:21)
[2017-03-10] MEDS: SODIUM CHLORIDE 1,000 ML IV SCH ×3 (06:57→17:21)
[2017-03-10] MEDS ORDERED: PT OWN MED DRAWER 7, Y5N ONE ×2 (07:15→08:52)
[2017-03-10 08:00] LABS: ANION GAP 9 (8-16); BLOOD UREA NITROGEN 19 mg/dL (7-18); CALCIUM 7.9 mg/dL (8.5-10.1); CHLORIDE 111 mmol/L (98-107); CO2 25 mmol/L (21-32); POTASSIUM 3.9 mmol/L (3.5-5.1); SODIUM 145 mmol/L (136-145)
[2017-03-10 08:04] LABS: CREATININE 0.8 mg/dL (0.55-1.02); GLUCOSE,RANDOM 96 mg/dL (74-106)
[2017-03-10] MEDS: SERTRALINE HCL 50 MG TABLET (FP) PO SCH (09:17)
[2017-03-10] MEDS: LISINOPRIL 20 MG TABLET (FP) PO SCH (09:17)
[2017-03-10] MEDS: DIVALPROEX SODIUM 250 MG TABLET E.C. (FP) PO SCH ×2 (09:18→21:21)
[2017-03-10] MEDS: HYDROCORTISONE 0.5% TOPICAL CREAM 30 GM TUBE TP SCH ×2 (09:18→21:22)
[2017-03-10] MEDS: ARIPiprazole 10 MG TABLET PO SCH (09:18)
--- NOTE | 2017-03-10 15:42 | PN ---
Progress Note (short form) - Note Progress Note: Subjective: no pain , no SOB , no fever Objective: Vital Signs: Last Vital Signs Temp Pulse Resp BP Pulse Ox 98.5 F 91 H 18 159/67 95 03/10/17 14:24 03/10/17 14:24 03/10/17 14:24 03/10/17 14:24 03/09/17 21:00 Laboratory Results - last 24 hr 03/10/17 06:00 Sodium 145 Potassium 3.9 Chloride 111 H Carbon Dioxide 25 Anion Gap 9 BUN 19 H Creatinine 0.8 Random Glucose 96 Calcium 7.9 L Physical Exam: NAD , dry MM. awake and cooperative Cv : RRR Lungs: CTAB Ext: no edema Abd: soft, NT, ND, nl BS ASSESSMENT AND PLAN: 86 y/o lady with h/o HTN and dementia who presented with a fall /syncope 1-Syncope: likely due to orthostatic hypotension in setting of volume depletion , . - cont hydration, monitor BUN - Echo , no significant valvular abn - carotid doppler with no high grade stenosis - ortho VS still pending 2-Sepsis : likely viral GE. resolved monitor off ABx. follow blood cx rapid flu Neg, RVP pending 3- volume depletion : IVF dispo : failed PT. need rehab but POA declined . [facility] dc [facility] . Visit type - Emergency Visit Emergency Visit: Yes ED Registration Date: 03/07/17 Care time: The patient presented to the Emergency Department on the above date and was hospitalized for further evaluation of their emergent condition. - New Patient This patient is new to me today: No - Critical Care Critical Care patient: No
[2017-03-10] MEDS: LATANOPROST 0.005% OPHTH SOLN 2.5ML BOTTLE OD SCH (21:22)
[2017-03-11] MEDS: HEPARIN NA (PORCINE) 5,000 UNITS/ML 1ML VIAL SQ SCH ×3 (06:19→21:54)
[2017-03-11] MEDS ORDERED: PT OWN MED DRAWER 7, Y5N ONE ×3 (06:39→17:41)
--- NOTE | 2017-03-11 07:04 | PN ---
Physical Exam: SUBJECTIVE: Patient seen and examined at bedside, no acute evenst over ight , AAOx2 place and people only, no pain , no faver, denies any abdominal pain , N/V /D/C. denies any lightheadedness. OBJECTIVE: Vital Signs Period Temp Pulse Resp BP Sys/[place] Pulse Ox Last 24 Hr 97.6 F-98.8 F 83-94 16-20 149-173/63-83 95-95 GENERAL: The patient is awake, alert, oeiented x2 place and people , in no acute distress. HEAD: Normal with no signs of trauma. EYES: sclera anicteric, conjunctiva clear. NECK: full range of motion, supple. LUNGS: Breath sounds equal, clear to auscultation bilaterally, no wheezes, no crackles, no accessory muscle use. HEART: Regular rate and rhythm, S1, S2 without murmur, rub or gallop. ABDOMEN: Soft, nontender, nondistended, normoactive bowel sounds, no guarding, no rebound, EXTREMITIES: 2+ pulses, warm, well-perfused, no edema. NEUROLOGICAL: Cranial nerves II through XII grossly intact. Normal speech, gait not observed. PSYCH: Normal mood, normal affect. SKIN: Warm, dry,diffuse seborhic keratosis on the back. Laboratory Results - last 24 hr 03/10/17 06:00 Sodium 145 Potassium 3.9 Chloride 111 H Carbon Dioxide 25 Anion Gap 9 BUN 19 H Creatinine 0.8 Random Glucose 96 Calcium 7.9 L Active Medications Generic Name Dose Route Start Last Admin Trade Name Freq PRN Reason Stop Dose Admin Acetaminophen 650 mg 03/08/17 08:41 Tylenol - PO Q6H PRN PAIN Aripiprazole 10 mg 03/08/17 10:00 03/10/17 09:18 Abilify PO 10 mg DAILY LINO Administration Divalproex Sodium 250 mg 03/08/17 10:00 03/10/17 21:21 Depakote - PO 250 mg BID LINO Administration Heparin Sodium (Porcine) 5,000 unit 03/09/17 14:00 03/11/17 06:19 Heparin - SQ 5,000 unit TID LINO Administration Hydrocortisone 1 applic 03/08/17 10:00 03/10/17 21:22 Hytone 0.5% Cream - TP Not Given BID LINO Sodium Chloride 1,000 mls @ 100 mls/hr 03/09/17 12:15 03/10/17 17:21 Normal Saline - IV 100 mls/hr ASDIR LINO Administration Latanoprost 1 drop 03/08/17 22:00 03/10/17 21:22 Xalatan 0.005% Eye Drops - OD 1 drop HS LINO Administration Lisinopril 20 mg 03/08/17 10:00 03/10/17 09:17 Prinivil PO 20 mg DAILY LINO Administration Ondansetron HCl 4 mg 03/07/17 20:55 Zofran Injection IVPUSH Q6H PRN NAUSEA Sertraline HCl 50 mg 03/08/17 10:00 03/10/17 09:17 Zoloft - PO 50 mg DAILY LINO Administration ASSESSMENT/PLAN: 86 y/o F with PMH HTN, baseline dementia, who presents to the ED s/p fall this morning/syncope . As per patient, . Pt being admitted to med-surg for sepsis 2/ 2 possible acute gastroenteritis. #Sepsis 2/2 possible acute gastroenteritis * Resolved # Syncope likely 2/2 volum depletion and sepsis , resolved * Negative orthostatic signs * DC fluids * Carotoid dopp;er with no stenosis velocity * Echocardiogram with no valvular abnormality # SABINO secondary to volum depletion * Resolved #HTN * Controlled with home meds Lisinopril 20 mg Po daily , received another 10 mg in the am due to elevated BP. # H/O Bipolar ? Psychosis ? * on home meds Zoloft 50 po daily, Abilify 10 mg PO daily,valbroic acid 250 mg PO BID #PPX * DVT: Hep 5000 SQ TID * SCDS Both legs #F/E/N * DC fluids * Monitor electrolytes * sodium controlled diet #Dispo * Failed PT * D/C to SNF , family refuse rehab discharged , another rehab eval in AM Visit type - Emergency Visit Emergency Visit: Yes ED Registration Date: 03/07/17 Care time: The patient presented to the Emergency Department on the above date and was hospitalized for further evaluation of their emergent condition. - New Patient This patient is new to me today: No - Critical Care Critical Care patient: No - Discharge Referral Referred to [facility] Med [facility]C.: No
[2017-03-11 08:07] LABS: ANION GAP 8 (8-16); BLOOD UREA NITROGEN 9 mg/dL (7-18); CALCIUM 7.7 mg/dL (8.5-10.1); CHLORIDE 110 mmol/L (98-107); CO2 26 mmol/L (21-32); GLUCOSE,RANDOM 107 mg/dL (74-106); POTASSIUM 3.7 mmol/L (3.5-5.1); SODIUM 144 mmol/L (136-145)
[2017-03-11 08:08] LABS: CREATININE 0.7 mg/dL (0.55-1.02)
[2017-03-11] MEDS ORDERED: SODIUM CHLORIDE 1,000 ML IV SCH (08:42)
[2017-03-11] MEDS ORDERED: LISINOPRIL 10 MG TABLET (FP) PO ONE (09:00)
[2017-03-11] MEDS: DIVALPROEX SODIUM 250 MG TABLET E.C. (FP) PO SCH ×2 (10:48→21:55)
[2017-03-11] MEDS: SERTRALINE HCL 50 MG TABLET (FP) PO SCH (10:48)
[2017-03-11] MEDS: LISINOPRIL 20 MG TABLET (FP) PO SCH (10:48)
[2017-03-11] MEDS: ARIPiprazole 10 MG TABLET PO SCH (10:49)
--- NOTE | 2017-03-11 16:00 | PN ---
Teaching Attending Note Name of Resident: Braxton Burgos ATTENDING PHYSICIAN STATEMENT I saw and evaluated the patient. I reviewed the resident's note and discussed the case with the resident. I agree with the resident's findings and plan as documented. SUBJECTIVE: No fever or chills, pepe abd pain , no GAN or dizziness OBJECTIVE: NAD , MMM. awake and cooperative , knows her location Cv : RRR Lungs: CTAB Ext: no edema Abd: soft, NT, ND, nl BS ASSESSMENT AND PLAN: 86 y/o lady with h/o HTN and dementia who presented with a fall /syncope 1-Syncope: likely due to orthostatic hypotension in setting of volume depletion. - dc IVF - Echo, no significant valvular abn - carotid doppler with no high grade stenosis 2-Sepsis: likely viral GE. resolved monitor off ABx. blood cx Neg x 72 hr rapid flu Neg, RVP pending 3- HTN: elevated this am , received extra 10 mg of lisinopril , dc IVF and cont home dose family declined rehab, [place] declined pt as she failed PT. will have PT eval again in am
[2017-03-11] MEDS: HYDROCORTISONE 0.5% TOPICAL CREAM 30 GM TUBE TP SCH ×2 (18:11→21:56)
[2017-03-11] MEDS: LATANOPROST 0.005% OPHTH SOLN 2.5ML BOTTLE OD SCH (21:56)
[2017-03-12] MEDS: HEPARIN NA (PORCINE) 5,000 UNITS/ML 1ML VIAL SQ SCH ×2 (06:04→13:28)
[2017-03-12 09:17] LABS: ALBUMIN 2.6 g/dl (3.4-5.0); ALK PHOS 76 U/L (45-117); ANION GAP 11 (8-16); BILIRUBIN,TOTAL 0.4 mg/dL (0.2-1.0); BLOOD UREA NITROGEN 11 mg/dL (7-18); CALCIUM 7.7 mg/dL (8.5-10.1); CHLORIDE 110 mmol/L (98-107); CO2 22 mmol/L (21-32); CREATININE 0.7 mg/dL (0.55-1.02); GLUCOSE,RANDOM 108 mg/dL (74-106); POTASSIUM 3.5 mmol/L (3.5-5.1); SGOT/AST 27 U/L (15-37); SGPT/ALT 25 U/L (12-78); SODIUM 143 mmol/L (136-145); TOT PROT 5.8 g/dl (6.4-8.2)
[2017-03-12] MEDS ORDERED: LISINOPRIL 20 MG TABLET (FP) PO SCH (10:00)
[2017-03-12] MEDS: SERTRALINE HCL 50 MG TABLET (FP) PO SCH (10:03)
[2017-03-12] MEDS: HYDROCORTISONE 0.5% TOPICAL CREAM 30 GM TUBE TP SCH (10:04)
[2017-03-12] MEDS: ARIPiprazole 10 MG TABLET PO SCH (10:05)
[2017-03-12] MEDS: DIVALPROEX SODIUM 250 MG TABLET E.C. (FP) PO SCH (10:05)
[2017-03-12 13:32] VITALS: BP 154/74; PULSE 91; TEMP 98.5
--- NOTE | 2017-03-12 13:42 | DS ---
Physical Exam: SUBJECTIVE: Patient seen and examined at bed side,mental status at her base line , feeling better and ready to go to SNF. denies any fever, chills, N/V/D/C, denies any abdominal pain, chest pain or palpitation. OBJECTIVE: Vital Signs Period Temp Pulse Resp BP Sys/[place] Pulse Ox Last 24 Hr 98.5 F-99.4 F 77-91 18-20 154-169/65-79 89 PHYSICAL EXAM GENERAL: The patient is awake, alert, oeiented x2 place and people , in no acute distress. HEAD: Normal with no signs of trauma. EYES: sclera anicteric, conjunctiva clear. NECK: full range of motion, supple. LUNGS: Breath sounds equal, clear to auscultation bilaterally, no wheezes, no crackles, no accessory muscle use. HEART: Regular rate and rhythm, S1, S2 without murmur, rub or gallop. ABDOMEN: Soft, nontender, nondistended, normoactive bowel sounds, no guarding, no rebound, EXTREMITIES: 2+ pulses, warm, well-perfused, no edema. NEUROLOGICAL: Cranial nerves II through XII grossly intact. Normal speech, gait not observed. PSYCH: Normal mood, normal affect. SKIN: Warm, dry,diffuse seborhic keratosis on the back. LABS Laboratory Results - last 24 hr 03/12/17 08:20 Sodium 143 Potassium 3.5 Chloride 110 H Carbon Dioxide 22 Anion Gap 11 BUN 11 Creatinine 0.7 Creat Clearance w eGFR > 60 Random Glucose 108 H Calcium 7.7 L Total Bilirubin 0.4 AST 27 ALT 25 Alkaline Phosphatase 76 Total Protein 5.8 L Albumin 2.6 L CBC, BMP 03/09/17 06:00 03/12/17 08:20 Active Medications Acetaminophen (Tylenol -) 650 mg PO Q6H PRN PRN Reason: PAIN Aripiprazole (Abilify) 10 mg PO DAILY [facility] Last Admin: 03/12/17 10:05 Dose: 10 mg Divalproex Sodium (Depakote -) 250 mg PO BID [facility] Last Admin: 03/12/17 10:05 Dose: 250 mg Heparin Sodium (Porcine) (Heparin -) 5,000 unit SQ TID [facility] Last Admin: 03/12/17 13:28 Dose: 5,000 unit Hydrocortisone (Hytone 0.5% Cream -) 1 applic TP BID [facility] Last Admin: 03/12/17 10:04 Dose: 1 applic Latanoprost (Xalatan 0.005% Eye Drops -) 1 drop OD HS [facility] Last Admin: 03/11/17 21:56 Dose: 1 drop Lisinopril (Prinivil) 40 mg PO DAILY [facility] Last Admin: 03/12/17 10:03 Dose: 40 mg Ondansetron HCl (Zofran Injection) 4 mg IVPUSH Q6H PRN PRN Reason: NAUSEA Sertraline HCl (Zoloft -) 50 mg PO DAILY [facility] Last Admin: 03/12/17 10:03 Dose: 50 mg Microbiology 03/07/17 18:26 Blood - Peripheral Venous Blood Culture - Preliminary NO GROWTH OBTAINED AFTER 96 HOURS, INCUBATION TO CONTINUE FOR 1 DAYS. 03/07/17 18:26 Blood - Peripheral Venous Blood Culture - Preliminary NO GROWTH OBTAINED AFTER 96 HOURS, INCUBATION TO CONTINUE FOR 1 DAYS. 03/07/17 18:00 Urine - Urine Clean Catch Urine Culture - Final NO GROWTH OBTAINED 03/08/17 09:00 Nasopharyngeal Swab Respiratory Syncytial Virus Ag - Final 03/08/17 09:00 Nasopharyngeal Swab Influenza Types A,B Antigen (KRISHNA) - Final 03/08/17 09:00 Nasopharyngeal Swab - Final HOSPITAL COURSE: Date of Admission:03/07/17 Date of Discharge: 03/12/17 is an 86 y/o F with PMH HTN, baseline dementia, who presents to the ED s/p fall /syncope per patient. Pt admitted to med-surg for sepsis 2/2 possible acute gastroenteritis.for Sepsis 2/2 possible acute gastroenteritis , Resolved with iv fluids and npo.and then advanced her diet as tolerated.for Syncope likely 2/2 volum depletion and sepsis , resolved ,Negative orthostatic signs, monitored off fluids with no complications,Carotoid dopper with no stenosis velocity,echocardiogram with no valvular abnormality. For SABINO secondary to volum depletion,Resolved.for HTN increased his Lisinopril 20 mg Po daily to 40 mg po daily.for better control. she has a H/O Bipolar ? Psychosis ? continue her home meds Zoloft 50 po daily , Abilify 10 mg PO daily,valbroic acid 250 mg PO BID for PPX,DVT: Hep 5000 SQ TID given during hospitalization. dc as out patient.and she was on sodium controlled diet. she will be send back to SNF as family refuse rehab discharged. Minutes to complete discharge: 40 Discharge Summary Reason For Visit: FEVER/DEHYDRATION Condition: Improved - Instructions Diet, Activity, Other Instructions: You were admitted to the hospital for syncope and you were found to have acute infection in your stomach(acute viral gastroenteritis) . lisinopril dose was increased form 20 mg to 40 mg due to HTN Please follow up with your primary care physician within a week Please keep your self hydrated by drinking enough water Please take your time when you get out of bed Please monitor your blood sugar and avoid standing when you feel lightheadedness. Please follow up with your primary care physician within one week. If you develop fever, chills or your symptoms worsen please call 911 or come back to emergency department as soon as possible. Referrals: Nadeen Colunga MD [Primary Care Provider] - 1 Week Disposition: [facility] - Home Medications Comprehensive Discharge Medication List: Ambulatory Orders Aripiprazole 10 mg PO DAILY 03/07/17 Divalproex [Depakote -] 250 mg PO BID 03/07/17 Hydrocortisone 0.5% Cream [Hytone 0.5% Cream -] 1 applic TP BID 03/07/17 Latanoprost 0.005% Eye Drops [Xalatan 0.005% Eye Drops -] 1 drop HS 03/07/17 Lisinopril [Prinivil -] 40 mg PO DAILY 03/07/17 Sertraline HCl 50 mg PO DAILY 03/07/17 This patient is new to me today: No Emergency Visit: Yes ED Registration Date: 03/07/17 Care time: The patient presented to the Emergency Department on the above date and was hospitalized for further evaluation of their emergent condition. Critical Care patient: No - Discharge Referral Referred to [facility] No
--- NOTE | 2017-03-12 18:14 | PN ---
Teaching Attending Note Name of Resident: Braxton Burgos ATTENDING PHYSICIAN STATEMENT I saw and evaluated the patient. I reviewed the resident's note and discussed the case with the resident. I agree with the resident's findings and plan as documented. SUBJECTIVE: No fever or chills . no pain OBJECTIVE: Cv : RRR Lungs: CTAB Ext: no edema ASSESSMENT AND PLAN: 86 y/o lady with h/o HTN and dementia who presented with a fall /syncope 1-Syncope: likely due to orthostatic hypotension in setting of volume depletion. - Echo, no significant valvular abn - carotid doppler with no high grade stenosis 2-Sepsis: likely viral GE. resolved blood cx Neg x 96hr rapid flu Neg, RVP pending 3- HTN: increase lisinopril to 40 daily dc today to rehab
== END 2017-03-12 14:13 | DRG 872 ==
LOC: JER 13:57 → JERBED 19:44 → OBSVTOIN 20:55 → J8W 03-08 16:42
PROVIDERS: ADMIT Internal Medicine; ATTEND Internal Medicine
DX: A41.9 Sepsis, unspecified organism (principal); N17.9 Acute kidney failure, unspecified; F03.90 Unspecified dementia, unspecified severity, without behavioral disturbance, psychotic disturbance, mood disturbance, and anxiety; F31.9 Bipolar disorder, unspecified; I10 Essential (primary) hypertension; R29.6 Repeated falls; A08.4 Viral intestinal infection, unspecified; S09.8XXA Other specified injuries of head, initial encounter; W06.XXXA Fall from bed, initial encounter; Z91.81 History of falling; Y93.89 Activity, other specified; Y92.013 Bedroom of single-family (private) house as the place of occurrence of the external cause; Y99.8 Other external cause status; E78.5 Hyperlipidemia, unspecified; I95.1 Orthostatic hypotension; E83.42 Hypomagnesemia; E86.0 Dehydration; E86.9 Volume depletion, unspecified
CPT/HCPCS: 36415; 70450-TC; 71045-TC; 80048; 80053; 81003; 81015; 82550; 82553; 83605; 83690; 83735; 84100; 84443; 84484; 85025; 85027; 85610; 85730; 87040; 87086; 87420; 87633; 87804; 93005; 93010; 93306-TC; 93880-TC; 97116-GP; 99284-25; G0378; J1644